=== PATIENT | male | born 1995 ===

== ENCOUNTER 2017-04-19 23:20 | Emergency (ER) | payer OTHER ==
[~2017-04-19] VITALS: Ht 170.2 cm; Wt 73.9 kg
[2017-04-19 23:29] VITALS: TEMP 36.6; Ht 170.2 cm; Wt 73.9 kg
[2017-04-19] MEDS ORDERED: RANITIDINE HCL 50 MG/100 ML D5W IV STA (23:51)
[2017-04-19] MEDS ORDERED: SODIUM CHLORIDE 0.9% 1000ML 1,000 ML IV STA (23:51)
[2017-04-19] MEDS ORDERED: KETOROLAC TROMETHAMINE 30 MG/ML VIAL IV STA (23:51)
[2017-04-19] MEDS ORDERED: ONDANSETRON INJ 2 MG/ML 2 ML VIAL IV STA (23:51)
[2017-04-20 00:14] LABS: HEMATOCRIT 41.5 % (42-52); MEAN CELL VOLUME 82.7 fL (80-100); MEAN CORPUSCULAR HEMOGLOBIN 27.5 pg (25-34); MEAN CORPUSCULAR HGB CONC 33.3 g/dl (32-36); MEAN PLATELET VOLUME 10.2 fL (7.4-10.4); PLATELET COUNT 188 K/uL (130-400); RED BLOOD COUNT 5.02 M/uL (4.7-6.1); WHITE BLOOD COUNT 4.76 K/uL (4.8-10.8)
[2017-04-20 00:33] LABS: BASO % 0.4 %; BASO ABS # 0.02 K/uL (0-0.2); COMPLETE YES; EOS % 1.9 %; LYMPH % 51.9 %; LYMPH ABS # 2.47 K/uL (1.2-3.4); MONO % 9.5 %; NEUT % 36.3 %
[2017-04-20 00:36] LABS: BUN/CREATININE RATIO 15.5 (10-20); CALCIUM 8.6 mg/dl (8.5-10.1); POTASSIUM 3.3 mmol/L (3.5-5.1)
[2017-04-20 00:38] LABS: ALB/GLOB RATIO 1.2 (0.9-2)
[2017-04-20] MEDS ORDERED: ONDANSETRON HOME PACK 4MG OD TAB PO ONE (01:15)
[2017-04-20 01:19] VITALS: BP 106/63; PULSE 70; O2SAT 100
--- NOTE | 2017-04-20 01:41 | EMERGENCY ROOM VISIT NOTE ---
History Report prepared by Christianne: Eren Sellers Under the Supervision of: Dr. Stas Gaxiola M.D. First contact with patient: 23:45 Chief Complaint: VOMITING Stated Complaint: VOMITING, DEPRESSION, HEADACHE, LOW BODY WEIGHT Nursing Triage Summary: Patient was fasting today and at 9 pm he had spicy food and then began to vomit. History of Present Illness The patient is a 21 year old male who presents to the Emergency Room with complaints of persistent upper abdominal pain that started earlier tonight. The pain is rated 6/10 in severity. The patient was fasting today for ada. He went to [facility] for dinner and had a lot of spicy food. He also started to experience the upper abdominal pain after eating, then he vomited. The patient also vomited upon arrival to the ED. The patient has not had any fevers or diarrhea. He had a headache today while he was fasting. The patient has never had pain like this after eating before. He has no known drug allergies. The patient has never had abdominal surgery. He is a [employer] student. Source of History: patient Onset: tonight Position: abdomen (upper) Symptom Intensity: 6/10 Timing: other (persistent) Associated Symptoms: + headache, + vomiting, No fevers, No diarrhea Review of Systems See HPI for pertinent positives & negatives. A total of 10 systems reviewed and were otherwise negative. Past Medical & Surgical Medical Problems: (1) No known drug allergy Family History No pertinent family history Social History Smoking Status: Never Smoker Occupation Status: [employer] student Current/Historical Medications No Active Prescriptions or Reported Meds Allergies Coded Allergies: No Known Allergies (Unverified , 04/19/17) Physical Exam Vital Signs Date Time Temp Pulse Resp B/P (MAP) Pulse Ox O2 Delivery O2 Flow Rate FiO2 04/20/17 01:19 70 16 106/63 100 04/19/17 23:29 36.6 84 16 136/86 98 Room Air Physical Exam GENERAL: Patient is in no acute distress. HEENT: No acute trauma, normocephalic atraumatic, mucous membranes are dry, no nasal congestion, no scleral icterus. NECK: No stridor, no adenopathy, no meningismus, trachea is midline. LUNGS: Clear to auscultation bilaterally, no wheeze, no rhonchi, breath sounds equal. HEART: Without murmurs gallops or rubs, regular rate and rhythm. ABDOMEN: Soft, moderately tender in the epigastrium, bowel sounds positive, no hernias, no peritonitis. EXTREMITIES: No cyanosis or edema, full range of motion of all the joints without pain or difficulty, no signs for acute trauma. NEUROLOGIC: Oriented x 3, no acute motor or sensory deficits, no focal weakness. SKIN: No rash, no jaundice, no diaphoresis. Medical Decision & Procedures Laboratory Results 04/19/17 23:45 Red Blood Count 5.02, Mean Corpuscular Volume 82.7, Mean Corpuscular Hemoglobin 27.5, Mean Corpuscular Hemoglobin Concent 33.3, Mean Platelet Volume 10.2, Neutrophils (%) (Auto) 36.3, Lymphocytes (%) (Auto) 51.9, Monocytes (%) (Auto) 9.5, Eosinophils (%) (Auto) 1.9, Basophils (%) (Auto) 0.4, Neutrophils # (Auto) 1.73, Lymphocytes # (Auto) 2.47, Monocytes # (Auto) 0.45, Eosinophils # (Auto) 0.09, Basophils # (Auto) 0.02 04/19/17 23:45 Test 04/19/17 23:45 White Blood Count 4.76 K/uL (4.8-10.8) Red Blood Count 5.02 M/uL (4.7-6.1) Hemoglobin 13.8 g/dL (14.0-18.0) Hematocrit 41.5 % (42-52) Mean Corpuscular Volume 82.7 fL (80-100) Mean Corpuscular Hemoglobin 27.5 pg (25-34) Mean Corpuscular Hemoglobin Concent 33.3 g/dl (32-36) Platelet Count 188 K/uL (130-400) Mean Platelet Volume 10.2 fL (7.4-10.4) Neutrophils (%) (Auto) 36.3 % Lymphocytes (%) (Auto) 51.9 % Monocytes (%) (Auto) 9.5 % Eosinophils (%) (Auto) 1.9 % Basophils (%) (Auto) 0.4 % Neutrophils # (Auto) 1.73 K/uL (1.4-6.5) Lymphocytes # (Auto) 2.47 K/uL (1.2-3.4) Monocytes # (Auto) 0.45 K/uL (0.11-0.59) Eosinophils # (Auto) 0.09 K/uL (0-0.5) Basophils # (Auto) 0.02 K/uL (0-0.2) RDW Standard Deviation 37.0 fL (36.4-46.3) RDW Coefficient of Variation 12.4 % (11.5-14.5) Immature Granulocyte % (Auto) 0.0 % Immature Granulocyte # (Auto) 0.00 K/uL (0.00-0.02) Red Blood Cell Morphology Unremarkable Anion Gap 5.0 mmol/L (3-11) Est Creatinine Clear Calc Drug Dose 109.3 ml/min Estimated GFR () 124.1 Estimated GFR (Non- 107.1 BUN/Creatinine Ratio 15.5 (10-20) Calcium Level 8.6 mg/dl (8.5-10.1) Total Bilirubin 0.6 mg/dl (0.2-1) Aspartate Amino Transf (AST/SGOT) 10 U/L (15-37) Alanine Aminotransferase (ALT/SGPT) 16 U/L (12-78) Alkaline Phosphatase 67 U/L (45-117) Total Protein 7.7 gm/dl (6.4-8.2) Albumin 4.2 gm/dl (3.4-5.0) Globulin 3.5 gm/dl (2.5-4.0) Albumin/Globulin Ratio 1.2 (0.9-2) Lipase 67 U/L (73-393) Laboratory results reviewed by me. Medications Administered Medications (Trade) Dose Ordered Sig/Jose J Route Start Time Stop Time Status Last Admin Dose Admin Ondansetron HCl (Zofran Inj) 4 mg NOW STAT IV 04/19/17 23:51 04/19/17 23:55 DC 04/20/17 00:22 4 MG Sodium Chloride 1,000 ml @ 999 mls/hr Q1H1M STAT IV 04/19/17 23:51 04/20/17 00:51 DC 04/19/17 23:51 999 MLS/HR Ketorolac Tromethamine (Toradol Inj) 30 mg NOW STAT IV 04/19/17 23:51 04/19/17 23:55 DC 04/20/17 00:22 30 MG Ranitidine HCl (zANTac IV) 50 mg NOW STAT IV 04/19/17 23:51 04/19/17 23:55 DC 04/20/17 00:22 50 MG ED Course 234: The patient was evaluated by the [employer] medical student. 235: Zantac 50 mg IV, Toradol 30 mg IV, NSS 1000 ml @ 999 mls/hr, Zofran 4 mg IV. 2355: The patient was evaluated in room A12A. A complete history and physical exam was performed. 0105: Reassessed the patient. He is feeling significantly better and would like to go home. The patient is ready for discharge. 0115: Zofran Odt 4 mg PO homepack. Medical Decision Differential diagnosis includes dehydration, pancreatitis, gastritis, food borne illness, viral illness, biliary colic, musculoskeletal pain, electrolyte imbalance, renal failure. Blood pressure screening: Patient was found to have a slightly elevated blood pressure due to circumstances. I do not believe that the patient requires hypertension monitoring. Medication Reconciliation: I attest that I have personally reviewed the patient' s current medication list. There is no leukocytosis or concerning anemia. No significant electrolyte abnormality, kidney failure or hepatitis. There is no pancreatitis. On exam, the patient was not febrile or toxic. There was no peritonitis. The patient received IV saline, IV Zantac and IV Zofran. He was given IV Toradol, he feels significantly improved. No further nausea or vomiting. The patient would like to go home. I think this is reasonable. His illness is likely from what he ate although I did discuss the possibility of early appendicitis or a viral illness with him. He will return if not continuing to improve. Impression Primary Impression: Vomiting Additional Impression: Epigastric abdominal pain Scribe Attestation The scribe's documentation has been prepared under my direction and personally reviewed by me in its entirety. I confirm that the note above accurately reflects all work, treatment, procedures, and medical decision making performed by me. Departure Information Dispostion Home / Self-Care Prescriptions No Active Prescriptions or Reported Meds Referrals No Doctor, Assigned (PCP) Forms HOME CARE DOCUMENTATION FORM, IMPORTANT VISIT INFORMATION Patient Instructions My [facility] Additional Instructions zofran 1 tab every 6 hours for nausea as needed bland diet---crackers, soup, toast, gatorade return for worsening symptoms or if not improving as early appendicitis could present by this lab testing today was all ok Problem Qualifiers Primary Impression: Vomiting
== END 2017-04-20 01:20 | disposition home or self-care (01) ==
LOC: C.EDB 23:25 → EDBD 23:25 → C.EDA 04-20 01:20
DX: R11.10 Vomiting, unspecified (principal); R10.13 Epigastric pain